=== PATIENT | male | born 1990 ===

== ENCOUNTER → 2019-03-26 | Outpatient (CLI) | payer OTHER | END | disposition home or self-care (01) | LOC: LAB 13:59 → LAB SHORT 13:59 | DX: L21.8 Other seborrheic dermatitis (principal); B36.8 Other specified superficial mycoses; L60.9 Nail disorder, unspecified; D22.5 Melanocytic nevi of trunk; L81.4 Other melanin hyperpigmentation | CPT/HCPCS: 87102 ==